=== PATIENT | male | born 1985 | race Caucasian/White ===

== ENCOUNTER 2017-09-12 21:45 | Emergency (ER) | payer OTHER, MEDICAID ==
[2017-09-12 21:55] VITALS: BP 127/74; BMI 25.0
--- NOTE | 2017-09-12 22:16 | DR.GENAD ---
HPI - PCP Primary Care Physician: ravin - HPI Comment HPI Comment: COUGHING IMPROVING. CLEAR MUCUS SPUTUM CURRENTLY. NO FOOD PARTICLES. - Complaint/Symptoms Chief Complaint Doctors Comments: HISTORY BELOW. Chief Complaint:: c/o "inhaled food down the wrong hole" while eating at [employer]. Has since been coughing and had some food and mucus come up. Self Treatment fo Chief Complaint: "I tried to drink water to flush it down but it didn't help" - Nurses notes reviewed Nurses Notes Review: Yes - Source History Provided: Patient - Mode of Arrival Mode of Arrival: Ambulatory - Timing Onset of Chief Complaint: 09/12/17 Came on: Suddenly - Duration Duration: Constant Duration: Hours - Severity Severity: Moderate PMH - PMH Past Medical History: Yes Past Medical History: Asthma Past Surgical History: No - Family History History of Family Medical Conditions: Yes Family Medical History: Cancer, Coronary Artery Disease, Hypertension - Social History Does patient currently use any type of tobacco product: No Have you used tobacco products in the last 12 months: No Type of Tobacco Use: None Does any household member use tobacco: No Alcohol Use: None Do you use any recreational Drugs:: No Lives With: Family Lives Where: Home - infectious screening In the last 2 months have you had wt loss of >10#?: NO Have you had fever, night sweats or hemotysis?: No Have you traveled outside the country in the last 6 months?: No Isolation: Standard ROS - Review of Systems Constitutional: No Symptoms Reported Eyes: No Symptoms Reported ENTM: No Symptoms Reported Respiratoy: Productive Cough Cardiovascular: Chest Pain Gastrointestinal/Abdominal: No Symptoms Reported Genitourinary: No Symptoms Reported Neurological: No Symptoms Reported Musculoskeletal: No Symptoms Reported Integumentary: No Symptoms Reported Hematologic/Lymphatic: No Symptoms Reported Endocrine: No Symptoms Reported All Other Systems: Reviewed and Negative PE - Vital Signs Vitals: Temperature 98.5 F Pulse Rate 98 Respiratory Rate 20 Blood Pressure [Right Arm] 123/71 Blood Pressure 127/74 O2 Sat by Pulse Oximetry 95 - General Limitations: No Limitations General Appearance: Alert - Head Head Exam: Normal Inspection - Eyes Eye exam: Normal Appearance - ENT ENT Exam: Normal External Ear Exam External Ear Exam: Normal External Inspection TM/Canal Exam: Bilateral Normal Nose Exam: Normal Nose Exam Mouth Exam: Normal Inspection Throat Exam: Normal Inspection - Neck Neck Exam: Trachea Midline - Chest Chest Inspection: Symmetric Chest Wall Rise - Respiratory Respiratory Exam: Normal Lung Sounds Bilat Respiratory Exam: Bilateral Clear to Auscultation - Cardiovascular Cardiovascular Exam: Regular Rate, Normal Rhythm, Normal Heart Sounds - Abdominal Exam Abdominal Exam: Normal Bowel Sounds, Soft. negative: Tenderness - Extremities Extremities Exam: Normal Inspection - Back Back Exam: Normal Inspection - Neurologic Neurological Exam: Alert, Oriented X3 - Psychiatric Psychiatric Exam: Normal Affect, Normal Mood - Skin Skin Exam: Normal Color MDM - Additional Information Additional Information Obtained From: Family - Differential Diagnosis Differential Diagnosis: COUGH, ASPIRATION INTO LUNGS Course - Treatment Treatment: SEE ORDERS. - Education/Counseling Education/Counseling: Patient, Family, Education Educated On: Diagnosis, Needs for Follow Up ROR - XRAY XRAY Interpreted by: Radiologist XRAY Findings: REPORT DISCUSS WITH PATIENT AND FAMILY. - Diagnosis Discharge Problem: Cough Aspiration into airway Qualifiers: Encounter type: initial encounter Qualified Code(s): T17.908A - Unspecified foreign body in respiratory tract, part unspecified causing other injury, initial encounter Chest pain Qualifiers: Chest pain type: other chest pain Qualified Code(s): R07.89 - Other chest pain - Discharge Plan Disposition: 01 HOME, SELF-CARE Condition: Stable - Follow ups/Referrals Follow ups/Referrals: Iván Green [Primary Care Provider] - 2 days - Instructions Instructions: Cough, Adult, [id number], Chest Wall Pain, [id number] Additional Instructions: RETURN TO ED IF WORSE.
--- NOTE | 2017-09-12 23:09 | RAD ---
Chest AP portable Indication: Aspiration. Findings: Comparison is made to 10/08/2013 There is no pneumothorax, consolidation or large effusion. Heart size is normal. No marked asymmetry and pulmonary inflation noted. Impression: No pneumothorax 4 asymmetric pulmonary inflation to suggest tracheal foreign body. Judy r, foreign body cannot be completely excluded by this study. Reported By:
== END 2017-09-12 23:20 | disposition home or self-care (01) ==
LOC: ER 21:45
DX: R05 Cough (principal); T17.908A Unspecified foreign body in respiratory tract, part unspecified causing other injury, initial encounter; R07.89 Other chest pain
CPT/HCPCS: 71045; 99282; 99283

== ENCOUNTER 2017-09-13 10:08 | Emergency (ER) | payer OTHER, MEDICAID ==
[2017-09-13 10:13] VITALS: BP 140/72; BMI 25.0
--- NOTE | 2017-09-13 10:44 | DR.GENAD ---
HPI - PCP Primary Care Physician: AMOS - Complaint/Symptoms Chief Complaint Doctors Comments: I agree with statement as written Chief Complaint:: PT. WAS SEEN IN THE ER LAST NIGHT FOR POSSIBLE ASPIRATION AND VOMITING. MOTHER STATES THEY WERE AT [employer] YESTERDAY EVENING AND PT. FELT IF HE SWALLOED AIR AND IMMEDIATELY BEGAN VOMITING LOTS OF MUCOUS AND FOOD. PT. DID NOT REST LAST NIGHT AND EVERY TIME HE ATTEMPTS TO EAT OR DRINK HE VOMITS. - Source History Provided: Patient, Parent - Mode of Arrival Mode of Arrival: Ambulatory - Timing Onset of Chief Complaint: 09/12/17 PMH - PMH Past Medical History: Yes Past Medical History: Asthma Past Surgical History: No Surgical History: No History - Family History History of Family Medical Conditions: Yes Family Medical History: Cancer, Coronary Artery Disease, Hypertension - Social History Does patient currently use any type of tobacco product: No Have you used tobacco products in the last 12 months: No Type of Tobacco Use: None Does any household member use tobacco: No Alcohol Use: None Do you use any recreational Drugs:: No Lives With: Dad, Mom Lives Where: Home - infectious screening In the last 2 months have you had wt loss of >10#?: NO Have you had fever, night sweats or hemotysis?: No Have you traveled outside the country in the last 6 months?: No Isolation: Standard ROS - Review of Systems Eyes: No Symptoms Reported ENTM: No Symptoms Reported Respiratoy: No Symptoms Reported Cardiovascular: No Symptoms Reported Gastrointestinal/Abdominal: No Symptoms Reported Genitourinary: No Symptoms Reported Neurological: No Symptoms Reported Musculoskeletal: No Symptoms Reported Integumentary: No Symptoms Reported Hematologic/Lymphatic: No Symptoms Reported Endocrine: No Symptoms Reported, Increased Hunger All Other Systems: Reviewed and Negative PE - Vital Signs Vitals: Temperature 98.3 F Pulse Rate 79 Respiratory Rate 17 Blood Pressure [Right Arm] 123/71 Blood Pressure 140/72 O2 Sat by Pulse Oximetry 96 - General Limitations: No Limitations General Appearance: Alert, In No Apparent Distress - Head Head Exam: Normal Inspection, Atraumatic - Eyes Eye exam: PERRL, EOMI - ENT ENT Exam: Normal Exam, Normal Oropharynx - Neck Neck Exam: Normal Inspection - Chest Chest Inspection: Normal Inspection - Respiratory Respiratory Exam: Normal Lung Sounds Bilat Respiratory Exam: Bilateral Clear to Auscultation - Cardiovascular Cardiovascular Exam: Regular Rate, Normal Rhythm - Abdominal Exam Abdominal Exam: Normal Inspection, Normal Bowel Sounds Abdominal Tenderness: negative: RUQ, RLQ, LUQ, LLQ, Epigastrium, Suprapubic, Diffuse, Mild, Moderate, Severe, Other - Extremities Extremities Exam: Normal Inspection - Back Back Exam: Normal Inspection - Neurologic Neurological Exam: Alert, Oriented X3, CN II-XII Intact - Psychiatric Psychiatric Exam: Normal Affect, Normal Mood - Skin Skin Exam: Warm, Dry, Intact Course - Treatment Treatment: Patient discussed with Dr Wiseman who agreed to see patient in [place]. Arrangement have been made for further evaluation. ROR - XRAY XRAY Interpreted by: Radiologist (CT Chest w/o: Mild to moderate dilatation of the esophagus proximal to the distal esophagus just above the gastroesophageal junction where there appears to be a mass obstructing the flow of barium. This could represent a food impaction or less likely in a patient this age neoplasm.. Lungs clear.) - Diagnosis Discharge Problem: Esophageal obstruction - Discharge Plan Condition: Stable - Follow ups/Referrals Follow ups/Referrals: Iván Green [Primary Care Provider] - 3 days - Instructions
--- NOTE | 2017-09-13 11:26 | CT ---
HISTORY: Dysphagia Study: CT chest without contrast Comparison: None Technique: Axial noncontrast images with coronal and sagittal reformats. Dose reduction procedures we re used with mA/kv adjusted for body size. The examination is limited due to the lack of intravenous contrast. Findings: She examination of the mediastinum demonstrated no definite evidence for mediastinal masses, enlarged lymphadenopathy, or enlarged hilar adenopathy. There is mild dilatation of the esophagus proximal to the distal esophagus just above the gastroesophageal junction where there appears to be a filling de fect which could represent a food impaction or mass. This could be evaluated endoscopically or with b arium esophagram. No pleural effusions are identified. No chest wall or axillary abnormality is ident ified. Those portions of the upper abdominal organs visualized were within normal limits to the limit ations of an unenhanced examination. Examination of the lung barney demonstrated no evidence for sign ificant nodules, masses, alveolar infiltrates, areas of consolidation, peribronchial thickening or br onchiectasis IMPRESSION: Mild to moderate dilatation of the esophagus proximal to the distal esophagus just above the gastroes ophageal junction where there appears to be a mass obstructing the flow of barium. This could represe nt a food impaction or less likely in a patient this age neoplasm. Lungs clear Reported By:
== END 2017-09-13 12:02 | disposition home or self-care (01) ==
LOC: ER 10:18
DX: K22.2 Esophageal obstruction (principal)
CPT/HCPCS: 71250; 99282

== ENCOUNTER 2022-01-16 02:30 | Observation (INO) ==
--- NOTE | 2022-01-16 02:52 | DR.FB ---
HPI Time Seen Time Seen by Provider: 01/16/22 02:50 PCP Primary Care Physician: STEPHANIE LYNCH HPI Comment HPI Comment: PATIENT IS 36YR OLD MALE IN ER WITH STATING THAT PIECE OF STEAK IS STUCK IN HIS ESOPHAGUS. HE IS NOT ABLE TO DRINK OR SWALLOW WATER. EVERY THING COME BACK UP. STARTED YESTERDAY AND IS GETTING WORSE. Complaint Chief Complaint:: PT AMBULATORY IN ED WITH C/O BEEF STUCK IN THROAT. MOTHER STATES EVERY TIME HE TRIES TO DRINK WATER TO GET IT TO GO DOWN IT COMES RIGHT BACK UP. COVID-19 Coronavirus risk:travel/contact w/high risk person: No Has patient experienced Coronavirus symptoms: No Reviewed Nurses Notes Review: Yes Source History Provided: Parent Mode of Arrival Mode of Arrival: Ambulatory Timing Onset of Chief Complaint: 01/15/22 Context Foreign body: Food Removal: Was attempted and Was not successful Severity Pain Severity: Moderate Associated signs and symptoms: Moderate Ability to handle secretions: Difficult Associated signs and symptoms Associated sign and symptoms: Pain PMH PMH Past Medical History: Yes Past Medical History: Asthma and GERD Past Medical History Comment: MR Past Surgical History: No Surgical History: No History Family History History of Family Medical Conditions: Yes Family Medical History: Diabetes Mellitus, Cancer, [place], Coronary Artery Disease and Hypertension Social History Does patient currently use any type of tobacco product: No Have you used tobacco products in the last 12 months: No Type of Tobacco Use: None Does any household member use tobacco: No Alcohol Use: None Do you use any recreational Drugs:: No Lives With: Family Lives Where: Home Travel Risk Coronavirus risk:travel/contact w/high risk person: No Has patient experienced Coronavirus symptoms: No Infectious screening In the last 2 months have you had wt loss of >10#?: NO Have you had fever, night sweats or hemotysis?: No Have you traveled outside the country in the last 6 months?: No Isolation: Standard ROS Review of Systems Constitutional: No Symptoms Reported and See HPI; negative Fever, Weakness or Fatigue Eyes: No Symptoms Reported and See HPI ENTM: No Symptoms Reported and See HPI; negative Nose Discharge or Nose Congestion Respiratoy: No Symptoms Reported and See HPI; negative Short of Breath Cardiovascular: No Symptoms Reported and See HPI Gastrointestinal/Abdominal: See HPI and Other (FB IN ESOPHAGUS/PIECE OF STAKE) Genitourinary: No Symptoms Reported and See HPI Neurological: No Symptoms Reported and See HPI Musculoskeletal: No Symptoms Reported and See HPI Integumentary: No Symptoms Reported and See HPI Hematologic/Lymphatic: No Symptoms Reported and See HPI Endocrine: No Symptoms Reported and See HPI Psychiatric: No Symptoms Reported and See HPI All Other Systems: Reviewed and Negative PE Vital Signs Vitals: Temperature 98.1 F Pulse Rate 74 Respiratory Rate 20 Blood Pressure [Right Arm] 123/71 Blood Pressure 139/88 O2 Sat by Pulse Oximetry 93 ENT ENT Exam: Normal Exam, Normal Oropharynx, Normal External Ear Exam and TM's Normal Bilaterally External Ear Exam: Normal External Inspection; negative Mastoid Tenderness TM/Canal Exam: Bilateral: Normal Nose Exam: Normal Nose Exam Mouth Exam: Normal Inspection Throat Exam: Normal Inspection; negative Tonsillomegaly or Tonsillar Exudate Neck Neck Exam: Normal Inspection and Trachea Midline; negative Tenderness Chest Chest Inspection: Normal Inspection and Symmetric Chest Wall Rise; negative Tenderness Respiratory Respiratory Exam: Normal Lung Sounds Bilat; negative Accessory Muscle Use, Chest Wall Tenderness or Respiratory Distress Respiratory Exam: Bilateral: Clear to Auscultation Cardiovascular Cardiovascular Exam: Regular Rate, Normal Rhythm and Normal Heart Sounds; negative Systolic Murmur or Diastolic Murmur Abdominal Exam Abdominal Exam: Normal Inspection and Normal Bowel Sounds; negative Tenderness MDM Differential Diagnosis Differential Diagnosis: Foreign body (IN ESOPHAGUS.) COURSE Treatment Treatment: SEE ORDERS DONE WHILE PATIENT WAS IN ER. Consultation Consultation Comments: DISCUSSED PATIENT WITH DR. HURLEY. HE WILL ADMIT PATIENT. Education/Counseling Education/Counseling: Patient and Family Educated On: Diagnosis and Needs for Follow Up ROR XRAY XRAY Interpreted by: Radiologist (REPORT NOTED.) and Self Opioid Opioid Risk Tool Age (Shiv box if 16-45): Yes History of Preadolescent Sexual Abuse: No Total: 1 Total Score Risk Category: Low Risk Copyright: Greyson MCKINLEY predicting aberrant behaviors Discharge Plan Diagnosis Discharge Problem: FB esophagus, Dysphagia Discharge Plan Patient Disposition: 09 ADMITTED INPATIENT Condition: Stable
[2022-01-16] MEDS ORDERED: GLUCAGEN IVP ONE (02:56)
[2022-01-16] MEDS ORDERED: GLUCAGEN ONE (02:57)
--- NOTE | 2022-01-16 04:04 | CT ---
STUDY: CT CHEST WITHOUT IV CONTRASTCOMPARISON: NoneTECHNIQUE: Axial images were acquired of the chest without IV contrast. Sagittal and coronal reformatted images were provided. All images were reviewed in a variety of windows and levels.3D MIPS were performed and reviewed.RADIATION REDUCTION TECHNIQUE: Automated exposure control, Adjustment of the mA and/or kV according to patient size, or iterative reconstruction techniques were used.HISTORY: R/O FB IN ESOPHAGUSFINDINGS:CHEST:Please note that lack of IV contrast limits evaluation of soft tissue structures and vascular detailTHYROID GLAND: The thyroid gland is grossly unremarkable.HEART AND VESSELS: The heart size is within normal limits. There is no evidence of a pericardial effusion. The thoracic aorta is normal is size without evidence of an aneurysm. The main pulmonary artery size is within normal limits.LYMPHNODES: There is no evidence of axillary, mediastinal, or hilar lymphadenopathy.AIRWAY: The trachea and mainstem bronchi are patent. There are no intraluminal lesions seen.LUNGS: The lungs are clear. No focal consolidation, pleural effusion, or pneumothorax is seen.ESOPHAGUS: There is a 12 mm in length ingested foreign body that is located in the distal esophagus. There is fluid seen throughout a majority of the esophagus with debris like material in the distal esophagus just proximal to the GE junction.BONES: The visualized bones demonstrate degenerative changes. There are no concerning lytic or blastic lesions identified.UPPER ABDOMINAL STRUCTURES: The visualized portions of the upper abdominal structures are unremarkable.IMPRESSION:There is a 12 mm in length ingested foreign body that is located in the distal esophagus.Communications: I have requested that the above findings be communicated to the referring physician/clinical team by the call clinical support nurse at the time I signed this report. Documentation of the time in which the call clinical support nurse communicated this information to the referring physician/clinical team has been detailed in the PACS system.Electronically signed by: John Gatica (Jan 16, 2022 04:02:21)
[2022-01-16] MEDS ORDERED: PROTONIX INJ 40 MG VIAL IVP ONE (04:10)
[2022-01-16] MEDS ORDERED: NS 1,000 ML IV 1,000 ML ONE (04:17)
[2022-01-16] MEDS ORDERED: PROTONIX INJ 40 MG VIAL ONE (04:17)
[2022-01-16] MEDS ORDERED: ZOFRAN INJ 4 MG VIAL IVP PRN (04:56)
[2022-01-16] MEDS ORDERED: NS 1,000 ML IV 1,000 ML IV SCH (05:00)
[2022-01-16 05:35] VITALS: BMI 28.5
[2022-01-16] MEDS ORDERED: PROTONIX INJ 40 MG VIAL IVP SCH (09:00)
[2022-01-16] MEDS ORDERED: DIPRIVAN VIAL 20 ML ONE (09:25)
[2022-01-16 12:08] VITALS: BP 142/73
== END 2022-01-16 13:35 | disposition home or self-care (01) ==
LOC: ER 02:33 → MED/SURG 02:33
PROVIDERS: ADMIT Surgery; ATTEND Surgery
DX: J45.909 Unspecified asthma, uncomplicated; Y93.9 Activity, unspecified; Z87.821 Personal history of retained foreign body fully removed; T18.128A Food in esophagus causing other injury, initial encounter; K21.00 Gastro-esophageal reflux disease with esophagitis, without bleeding; X58.XXXA Exposure to other specified factors, initial encounter; Y92.9 Unspecified place or not applicable; R13.19 Other dysphagia; Z20.822 Contact with and (suspected) exposure to COVID-19